=== PATIENT | male | born 1970 | race Caucasian/White ===

== ENCOUNTER 2023-03-11 09:02 | Day surgery (SDC) | payer OTHER ==
[2023-03-02 15:12] VITALS: BMI 30.5
[2023-03-11 09:23] VITALS: RESP 18
[2023-03-11 10:27] VITALS: BP 104/72; PULSE 81; TEMP 98.1
== END 2023-03-11 10:52 | disposition home or self-care (01) ==
LOC: FASU-ENDO 09:02
PROVIDERS: ATTEND Internal Medicine Gastroenterology
PROC: 0DBL8ZX Excision of Transverse Colon, Via Natural or Artificial Opening Endoscopic, Diagnostic (ICD-10-PCS; principal; 2023-03-11 10:06)
DX: Z12.11 Encounter for screening for malignant neoplasm of colon (principal); D12.3 Benign neoplasm of transverse colon; K64.1 Second degree hemorrhoids
CPT/HCPCS: 88305-TC